=== PATIENT | female | born 1980 | race Hispanic/Latino ===

== ENCOUNTER 2020-06-17 08:27 | Outpatient (CLI) | payer OTHER ==
--- NOTE | 2020-06-17 09:23 | ULT ---
OB ULTRASOUND: HISTORY: anatomy FINDINGS: A single live intrauterine gestation is seen with measurements corresponding to an estimated gestatio nal age of 19 weeks 4 daysand BRIAN at 11/07/2020. The estimated weight measures 306 g or 11 ounces (5% by Hadlock criteria). biometry: BPD: 4.27 cm, 19 weeks 0 days HC: 16.52 cm, 19 weeks 2 days AC: 13.68 cm, 19 weeks 1 FL: 3.34 cm, 20 weeks 4 days heart rate: 146bpm Placenta: Anterior and low-lying Placenta previa: No GABY: 10.8cm Cervical length: 3.7cm A three-vessel cord, cord insertion, kidneys, urinary bladder, stomach, 4 chambered heart, late ral ventricles, cerebellum, spine, lips/nose, upper and lower extremities are visualized. No definite anomalies are seen. IMPRESSION: 1. Single live intrauterine gestation of 19 weeks 4 daysestimated gestational age and BRIAN at 2. Anterior placenta without placenta previa
== END 2020-06-17 08:28 | disposition home or self-care (01) ==
LOC: BICULT 08:27
PROVIDERS: ATTEND Family Medicine
DX: O09.522 Supervision of elderly multigravida, second trimester (principal); Z3A.19 19 weeks gestation of pregnancy
CPT/HCPCS: 76805

== ENCOUNTER 2020-10-10 10:28 | Day surgery (SDC) | payer OTHER ==
[2020-10-10 11:01] VITALS: BP 133/74; TEMP 98.5; BMI 31.2
--- NOTE | 2020-10-10 11:51 | ULT ---
LIMITED OBSTETRICAL ULTRASOUND FOR BIOPHYSICAL PROFILE INDICATION: Nonreactive NST TECHNIQUE: Grayscale, M-mode Doppler, color Doppler and spectral Doppler images were obtained. Biophy sical profile was submitted by the ct technician. Imaging is focused on the clinical indication. COMPARISON: Complete OB ultrasound dated June 17, 2020 GESTATION: Number of gestations: Single. Presentation: Cephalic. heart rate: 150 bpm. Placental location: Anterior Previa: No evidence for previa. Cervical length: Not well seen GABY: 10.1 cm. Biophysical profile: tone: 2 out of 2. breathin out of 2 movements: 2 out of 2 Amniotic fluid level: 2 out of 2 IMPRESSION: 1. Biophysical profile of 8 out of 8.
[2020-10-10] MEDS ORDERED: hydrALAZINE 20 MG/ML VIAL SLOW IVP PRN (11:53)
--- NOTE | 2020-10-10 12:25 | PRG ---
DATE OF SERVICE: 10/10/2020 TIME OF SERVICE: Noon. PRESENTING COMPLAINT: 37-weeks gestation with nonreactive NST, in office for further evaluation. HISTORY OF PRESENT ILLNESS: Ms. Haider is a 40-year-old 6, para 5, x5, 37 weeks gestation with BRIAN of 10/29/2020. She has gestational diabetes, white classification A1, on diet control. She is receiving weekly antepartum testing. She was noted to have a nonreactive NST. She reports an active fetus. She denies leakage of fluid. She is sent over for further evaluation. SLEEP TECH HISTORY: x5. Blood type O positive, antibody negative. Pap negative. Rubella immune. VDRL nonreactive. Hepatitis B, GC, chlamydia negative. Group B strep positive. PAST MEDICAL HISTORY: None. PAST SURGICAL HISTORY: None. ALLERGIES: DENIES. MEDICATIONS: vitamins. SOCIAL HISTORY: Denies tobacco, alcohol, or IV drug use. FAMILY HISTORY: Noncontributory. REVIEW OF SYSTEMS: Noncontributory. PHYSICAL EXAMINATION: GENERAL: female, in no acute distress. VITAL SIGNS: 98.2, pulse 85, respirations 18, blood pressure 128/72. HEENT: Within normal limits. LUNGS: Clear to auscultation bilaterally. HEART: Regular rhythm. ABDOMEN: Soft, nontender. No palpable contractions. FHTs are in 150s. Vulva without lesions. Vagina without discharge. Cervical exam deferred. EXTREMITIES: No clubbing, cyanosis, or edema. Biophysical profile; ultrasound was performed, which revealed an 8/8 BPP, normal GABY of approximately 10 in cephalic presentation. monitoring was carried out which revealed a reactive category 1 nonstress test which make modified BPP score 10/10. IMPRESSION: 37-weeks gestation with reassuring antepartum testing 10/10 with biophysical profile/NST. PLAN: Keep scheduled followup with Dr. Austin. Keep scheduled induction with Dr. Austin. ER precautions for decreased movement. Job ID: [id number]
[2020-10-11] MEDS ORDERED: FLU VACC QS2020-21(6MOS UP)/PF 60 MCG/0.5 ML SYRINGE IM ONE (11:15)
== END 2020-10-10 12:10 | disposition home or self-care (01) ==
LOC: L&D/OP 10:28
PROVIDERS: ATTEND Family Medicine
DX: Z01.89 Encounter for other specified special examinations (principal); O24.410 Gestational diabetes mellitus in pregnancy, diet controlled; O09.523 Supervision of elderly multigravida, third trimester; Z3A.37 37 weeks gestation of pregnancy
CPT/HCPCS: 76819; 99282

== ENCOUNTER 2020-10-17 08:30 | Inpatient (IN) | payer OTHER, SELFPAY ==
[2020-10-17 09:26] VITALS: BMI 28.7
[2020-10-17] MEDS ORDERED: Penicillin G Potassium 5 MILL.UNITS VIAL ONE (09:52)
[2020-10-17] MEDS ORDERED: Ondansetron PF 4 MG/2 ML Vial IVP PRN ×2 (10:30→14:38)
[2020-10-17] MEDS ORDERED: Lidocaine 1% (PF) 30 ML VIAL SC PRN (10:30)
[2020-10-17] MEDS ORDERED: HYDROcodone/Acetaminophen 5/325 mg Tablet PO PRN ×4 (10:30→14:38)
[2020-10-17] MEDS ORDERED: hydrALAZINE 20 MG/ML VIAL SLOW IVP PRN ×2 (10:30→14:38)
[2020-10-17] MEDS ORDERED: Penicillin G Potassium 5 MILL.UNITS in Sodium Chloride 0.9% 100 ML IVPB SCH (10:30)
[2020-10-17] MEDS ORDERED: Lactated Ringer's 1,000 ML IV SCH (10:30)
[2020-10-17] MEDS ORDERED: Acetaminophen 500 MG TAB PO PRN (10:30)
[2020-10-17] MEDS ORDERED: Promethazine HCl 25 MG/ML VIAL IM PRN ×2 (10:30→14:38)
[2020-10-17] MEDS ORDERED: Ibuprofen 800 MG TAB PO PRN (10:30)
[2020-10-17] MEDS ORDERED: Butorphanol Tartrate 1 MG/ML VIAL SLOW IVP PRN (10:30)
[2020-10-17] MEDS ORDERED: Bupivacaine 0.5% 20 ML, fentaNYL Citrate/PF 400 MCG in Sodium Chloride 0.9% 72 ML EPIDURAL SCH (10:30)
[2020-10-17] MEDS ORDERED: NS / Oxytocin 40 units/1000ml 1,000 ML IV PRN (10:30)
[2020-10-17] MEDS ORDERED: DISCONTINUE ALL PREVIOUS NARCOTICS FS SCH (10:30)
[2020-10-17 10:42] LABS: Hemoglobin 15.5 g/dL (12.0-16.0); Mean Corpuscular Hemoglobin 33.6 pg (27.0-31.0); Mean Corpuscular Volume 98.8 fL (78.0-98.0); Mean Platelet Volume 8.5 fL (7.4-10.4); Platelet Count 184 thou/uL (130-400); RBC Distribution Width 13.2 % (11.5-14.5); White Blood Cell (WBC) Count 9.6 thou/uL (4.8-10.8)
[2020-10-17] MEDS: Lactated Ringer's 1,000 ML IV SCH ×2 (11:05→12:08)
[2020-10-17] MEDS ORDERED: ePHEDrine 50 MG/ML VIAL ONE (11:16)
[2020-10-17] MEDS ORDERED: Bupivacaine 0.25% HCL 30 ML VIAL ONE (11:16)
[2020-10-17 11:23] LABS: HBSAg Index 0.16 S/CO (0-0.99); Hep B Surf Ag Non-Reactive S/CO (NonReactive); Syphilis Antibody Nonreactive (Nonreactive); Syphilis Antibody Index 0.02 S/CO (<1.00 Non-Reactive)
[2020-10-17] MEDS ORDERED: Misoprostol 200 MCG TAB ONE (11:33)
[2020-10-17] MEDS: Penicillin G 2.5 MILL.units 2.5 MILL.UNITS in Premix Bag 1 BAG IVPB SCH ×2 (11:44→16:39)
[2020-10-17] MEDS ORDERED: Benzocaine-Menthol 82.5 ML CAN TOP PRN (14:38)
[2020-10-17] MEDS ORDERED: Lanolin Ointment 7 GM TUBE TOP PRN (14:38)
[2020-10-17] MEDS ORDERED: Adacel (T-DAP) 0.5 ML SYRINGE IM ONE (14:38)
[2020-10-17] MEDS ORDERED: diphenhydrAMINE 25 MG CAP PO PRN (14:38)
[2020-10-17] MEDS ORDERED: Milk Of Magnesia 30 ML UDCUP PO PRN (14:38)
[2020-10-17] MEDS ORDERED: NS / Oxytocin 40 units/1000ml 1,000 ML IV SCH (14:38)
[2020-10-17] MEDS ORDERED: Bisacodyl 10 MG SUPP PR PRN (14:38)
[2020-10-17] MEDS: Ferrous Sulfate 325 MG TAB PO SCH (16:50)
[2020-10-17 17:21] LABS: SARS-CoV-2 MS2 Positive; SARS-CoV-2 N Gene Negative; SARS-CoV-2 S Gene Negative; SARS-CoV-2 by NAA Not Detected (NotDetected); SARS-CoV-2 orf1ab Negative
[2020-10-17] MEDS: Ibuprofen 800 MG TAB PO SCH (21:57)
[2020-10-17] MEDS: Docusate Calcium (SURFAK) 240 MG CAP PO SCH (21:57)
[2020-10-18] MEDS: Ibuprofen 800 MG TAB PO SCH ×3 (05:37→21:37)
[2020-10-18 06:19] LABS: Hemoglobin 13.4 g/dL (12.0-16.0); Mean Corpuscular HGB CONC 33.9 g/dL (32.0-36.0); Mean Corpuscular Hemoglobin 33.8 pg (27.0-31.0); Mean Platelet Volume 8.1 fL (7.4-10.4); Platelet Count 136 thou/uL (130-400); RBC Distribution Width 13.4 % (11.5-14.5); Red Blood Cell (RBC) Count 3.95 mill/uL (4.20-5.40); White Blood Cell (WBC) Count 10.7 thou/uL (4.8-10.8)
--- NOTE | 2020-10-18 06:24 | PDOC.PP ---
Post Progress Note Post Day #: PPD1 Subjective: Resting, no complaints. PO intake tolerated: yes Flatus: yes Ambulation: yes Vital Signs (12 hours) Temp Pulse Resp BP Pulse Ox 10/18/20 05:37 97.5 F L 61 12 110/55 L 98 10/18/20 00:45 98.3 F 69 12 115/55 L 97 10/17/20 20:20 98.1 F 72 12 118/56 L 98 Weight Weight 71.214 kg - Physical Examination General: NAD Respiratory: non-labored breathing Neurological: no gross focal deficits Psychiatric: normal affect Result Diagrams: 10/18/20 06:01 Additional Labs: Post Labs Hep Bs Antigen Non-Reactive S/CO (NonReactive) 10/17/20 10:07 Blood Type O POSITIVE 10/17/20 11:32 - Assessment/Plan Doing well s/p , +GBS Routine [facility] in AM
[2020-10-18] MEDS: Ferrous Sulfate 325 MG TAB PO SCH ×2 (08:26→16:40)
[2020-10-18] MEDS: Prenatal Vitamin 1 TAB PO SCH (08:33)
[2020-10-18] MEDS: Docusate Calcium (SURFAK) 240 MG CAP PO SCH ×2 (08:33→21:37)
[2020-10-19] MEDS: Ibuprofen 800 MG TAB PO SCH (05:28)
--- NOTE | 2020-10-19 07:05 | PDOC.PP ---
Post Progress Note Post Day #: 2 PO intake tolerated: yes Flatus: yes Ambulation: yes Vital Signs (12 hours) Temp Pulse Resp BP Pulse Ox 10/18/20 20:00 98.1 F 69 15 108/54 L 97 Weight Weight 157 lb - Physical Examination General: NAD Cardiovascular: no m/r/g, RRR Respiratory: clear to auscultation bilaterally, non-labored breathing Abdominal: + bowel sounds, lochia Extremities: negative homans (B) Neurological: no gross focal deficits Psychiatric: A&Ox3, normal affect Result Diagrams: 10/18/20 06:01 Additional Labs: Post Labs Hep Bs Antigen Non-Reactive S/CO (NonReactive) 10/17/20 10:07 Blood Type O POSITIVE 10/17/20 11:32 - Assessment/Plan doing welll wi home
[2020-10-19 07:49] VITALS: BP 128/64; TEMP 98.3
[2020-10-19] MEDS: Prenatal Vitamin 1 TAB PO SCH (09:23)
[2020-10-19] MEDS: Docusate Calcium (SURFAK) 240 MG CAP PO SCH (09:23)
[2020-10-19] MEDS: Ferrous Sulfate 325 MG TAB PO SCH (09:26)
== END 2020-10-19 10:14 | disposition home or self-care (01) | DRG 807 ==
LOC: L&D/OP 08:30 → L&D 13:30 → 3SW 16:48
PROVIDERS: ADMIT Obstetrics & Gynecology; ATTEND Family Medicine
PROC: 10E0XZZ Delivery of Products of Conception, External Approach (ICD-10-PCS; principal; 2020-10-17)
PROC: 0HQ9XZZ Repair Perineum Skin, External Approach (ICD-10-PCS; 2020-10-17)
PROC: 10907ZC Drainage of Amniotic Fluid, Therapeutic from Products of Conception, Via Natural or Artificial Opening (ICD-10-PCS; 2020-10-17)
DX: O24.429 Gestational diabetes mellitus in childbirth, unspecified control (principal); Z37.0 Single live birth; Z3A.38 38 weeks gestation of pregnancy; O99.824 Streptococcus B carrier state complicating childbirth; Z20.828 Contact with and (suspected) exposure to other viral communicable diseases; Z23 Encounter for immunization; O70.0 First degree perineal laceration during delivery
CPT/HCPCS: 36415; 36416; 51702; 85027; 86780; 86850; 86900; 86901; 87340; 87635; 99285; J2540; J3010; J3490; S0020; U0003